=== PATIENT | male | born 1995 | race Caucasian/White ===

== ENCOUNTER 2024-07-13 14:04 | Outpatient (CLI) | payer BC, SELFPAY ==
--- NOTE | ~2024-07-13 | XR_ITS ---
3 VIEWS LUMBAR SPINE Ordering provider: Kandy Perez, [employer] History: . Acute bilat lbp without sciatica . Comparison: None. FINDINGS: VERTEBRAL BODIES:Slight loss of height anteriorly is seen in L1 and L2. No visible fracture or sublu xation. DISK SPACES: Normal. SOFT TISSUES: Normal. IMPRESSION: No acute osseous abnormality lumbar spine. Slight loss of height anteriorly seen in L1 and L2 most likely chronic. If clinically warranted MRI i s advised. Reviewed, dictated and finalized at location [facility]. IMPRESSION: No acute osseous abnormality lumbar spine. Slight loss of height anteriorly seen in L1 and L2 most likely chronic. If clin ically warranted MRI is advised.
== END 2024-07-13 14:05 | disposition home or self-care (01) ==
LOC: MICIMG 14:07
PROVIDERS: PCP Nurse Practitioner; Visit Provider Nurse Practitioner
DX: M54.50 Low back pain, unspecified (principal)
CPT/HCPCS: 72100

== ENCOUNTER 2024-08-04 12:49 | Outpatient (CLI) | payer BC, SELFPAY ==
--- NOTE | ~2024-08-04 | MR_ITS ---
MRI of the lumbar spine Clinical History: Back pain, right sciatica Technique: Axial T2-weighted images, and sagittal T1-weighted, T2-weighted, and T2 fat-sat images wer e acquired. Findings: There is no fracture or subluxation of the lumbar spine. Vertebral bodies maintain normal h eight and alignment. No bone marrow signal abnormality seen. At L1-L2, L2-L3, L3-L4, there is no disc bulge or herniation. Intervertebral discs at the levels main tain normal signal and position. There are mild facet joint degenerative changes at these levels. No spinal canal stenosis or neural foraminal narrowing at these levels. At L4-L5, there is moderate degenerative disc narrowing. There is central to left paracentral disc ex trusion with moderate to advanced facet arthropathy. There is resultant severe compression of the the joe sac with associated severe canal stenosis. There is mild to moderate bilateral neural foraminal n arrowing. At L5-S1, there is central disc protrusion with mild degenerative disc narrowing and moderate facet a rthropathy. No judy central canal stenosis. There is severe bilateral neural foraminal compromise. Paravertebral soft tissues are unremarkable. Impression: Central to left paracentral disc extrusion at L4-L5 with additional degenerative changes, resulting i n severe spinal canal stenosis/thecal sac compression and mild to moderate bilateral neural foraminal narrowing. Central disc protrusion at L5-S1, contributing to severe bilateral neural foraminal compromise. Reviewed, dictated and finalized at [facility]. Impression: Central to left paracentral disc extrusion at L4-L5 with additional degenerativ e changes, resulting in severe spinal canal stenosis/thecal sac compression and mild to moderate bilateral neural foraminal narrowing. Central disc protrusion at L5-S1, contributing to severe bilateral neural danielle inal compromise.
== END 2024-08-04 12:50 | disposition home or self-care (01) ==
LOC: GOSHIMG 12:49
PROVIDERS: PCP Nurse Practitioner; Visit Provider Nurse Practitioner
DX: M54.41 Lumbago with sciatica, right side (principal); M51.26 Other intervertebral disc displacement, lumbar region; M51.27 Other intervertebral disc displacement, lumbosacral region
CPT/HCPCS: 72148